=== PATIENT | female | born 1995 | race Caucasian/White ===

== ENCOUNTER 2016-11-13 08:43 | Emergency (ER) | payer OTHER ==
[~2016-11-13] VITALS: Ht 172.7 cm; Wt 68.2 kg
[2016-11-13] MEDS ORDERED: MICROGESTIN FE1 EAC1 PO (08:52)
[2016-11-13 09:31] LABS: BASO % 0.5 % (0-2); EOS % 1.8 % (0-7); EOSINOPHIL ABSOLUTE COUNT 0.1 tho/cmm (0.0-0.7); HCT-HEMATOCRIT 41.5 % (34.0-49.0); HGB-HEMOGLOBIN 14.3 gm/dl (12.0-15.5); IMMATURE GRANULOCYTES ABSOLUTE 0.01 tho/cmm (0-0.03); IMMATURE GRANULOCYTES PERCENT 0.2 % (0-0.3); LYMPH ABSOLUTE COUNT 1.4 tho/cmm (0.8-4.5); MCH (MEAN CORPUSCULAR HGB) 30.4 pg (28.0-32.0); MCHC MEAN CORPUSCULAR HGB CONC 34.5 % (32.0-36.0); MCV (MEAN CELL VOLUME) 88.1 fl (82.0-96.0); MEAN PLATELET VOLUME 10.5 cmc (9.4-12.4); MONOCYTE ABSOLUTE COUNT 0.4 tho/cmm (0.0-1.2); NEUTROPHIL ABSOLUTE COUNT 2.5 tho/cmm (1.6-8.0); NEUTROPHIL-AUTOMATED 2.5 tho/cmm (1.6-8.0); NEUTROPHILS % 58.5 % (40-80); PLATELET COUNT 252 tho/cmm (150-450); RED BLOOD COUNT 4.71 mil/cmm (4.00-5.20); WHITE BLOOD COUNT 4.4 tho/cmm (4.0-10.0)
[2016-11-13 09:41] LABS: PREGNANCY-SERUM NEGATIVE (NEGATIVE)
[2016-11-13 09:44] LABS: ANION GAP 11 mmol/L (0-20); BLOOD UREA NITROGEN 14 mg/dl (6-24); CALCIUM 9.4 mg/dl (8.5-10.5); CARBON DIOXIDE-VENOUS 25 mmol/L (22-32); CHLORIDE 108 mmol/l (96-110); CREATININE 0.89 mg/dl (0.50-1.10); GLUCOSE 95 mg/dL (70-110); POTASSIUM 4.2 mmol/L (3.7-5.1); SODIUM 140 mmol/L (135-145); eGFR VALUE FOR BLACK >90 mL/Min
== END 2016-11-13 10:37 ==
LOC: EDMED → EDBD 08:43 → EDMED 10:37
PROVIDERS: Emergency Medicine
DX: R55 Syncope and collapse (principal)